=== PATIENT | male | born 1995 | race Caucasian/White ===

== ENCOUNTER 2016-08-17 22:13 | Emergency (ER) | payer SELFPAY ==
[~2016-08-17] VITALS: Ht 180.3 cm; Wt 78.6 kg
[2016-08-17 22:16] VITALS: TEMP 37.2
[2016-08-17] MEDS ORDERED: IBUP-1050 PO (22:48)
[2016-08-17] MEDS ORDERED: ASPI325T39 PO (22:48)
[2016-08-17] MEDS ORDERED: KETOROLAC TROMETHAMINE 30 MG/ML VIAL IV STA (23:17)
[2016-08-17] MEDS ORDERED: SODIUM CHLORIDE 0.9% 1000ML 1,000 ML IV STA (23:18)
--- NOTE | 2016-08-17 23:20 | EMERGENCY ROOM VISIT NOTE ---
History Report prepared by Dino: Connie Franco Under the Supervision of: Dr. Lindsey Pyle D.O. First contact with patient: 23:04 Chief Complaint: HEADACHE Stated Complaint: FEVER, SEVERE HEADACHE, PRESSURE BEHIND RT EYE History of Present Illness The patient is a 20 year old male who presents to the Emergency Room with complaints of constant fever beginning last night. He states that his fever has been constant throughout the day today. He has not taken his temperature. He has also been experiencing a headache on the right side of his head and right sided facial pain. He reports an "uncomfortable pressure" behind his right eye. The patient notes a sore throat and states that he has not been eating because this exacerbates his pain. He has some right sided abdominal pain. He rates his current pain as an 8/10 in severity. The patient denies nausea, vomiting, and leg cramping or swelling. He has never had mononucleosis. He did not have a flu shot this year. The patient is a student at [employer], and denies any sick contacts. He has been taking ibuprofen for his symptoms. He states that he has been drinking fluids throughout the day. Source of History: patient Onset: last night Position: head Symptom Intensity: 8/10 Quality: pressure Timing: constant Modifying Factors (Worsening): eating Associated Symptoms: + abdominal pain, + headache, + sorethroat, No nausea, No vomiting Note: Pt notes right sided facial pain and pain behind his right eye. Review of Systems See HPI for pertinent positives & negatives. A total of 10 systems reviewed and were otherwise negative. Past Medical & Surgical Medical Problems: (1) Alcohol intoxication Family History No pertinent history stated. Social History Smoking Status: Current Every Day Smoker Alcohol Use: occasionally Drug Use: marijuana Marital Status: single Occupation Status: [employer] student Current/Historical Medications Scheduled Amoxicillin & Pot Clavulanate (Augmentin 875-125 mg), 875 MG PO BID Aspirin (Aspirin Ec), 650 MG PO PRN UD Ibuprofen (Advil), 400 MG PO PRN UD Allergies Coded Allergies: No Known Allergies (Unverified , 01/19/16) Physical Exam Vital Signs Date Time Temp Pulse Resp B/P Pulse Ox O2 Delivery O2 Flow Rate FiO2 08/18/16 03:04 99 20 105/56 98 08/18/16 01:51 83 17 101/59 99 08/18/16 00:52 64 18 125/48 99 Room Air 08/17/16 23:37 96 Room Air 08/17/16 22:16 37.2 91 18 115/72 97 Room Air Physical Exam HEENT: Head - normocephalic and atraumatic Pupils are equal, round, and reactive to light. Extraocular eye muscles are intact, and sclera are anicteric. Ears - TMs clear bilaterally. Nose - moist nasal mucosa without discharge. Mouth - moist buccal mucosa. Oropharynx is nonerythematous and there is tonsillar exudate, no erythema or edema noted. Neck: Supple; no JVD, nuchal rigidity, cervical lymphadenopathy. Heart: Regular rate and rhythm. There is a normal S1 and S2 with no murmurs, clicks, or gallops appreciated. Lungs: Clear to auscultation bilaterally with no wheezes, rales, or rhonchi. Abdomen: Soft, nondistended, with good bowel sounds. There are no palpable pulsatile masses or hepatosplenomegaly. There is no guarding, rigidity, or rebound noted. Bilateral CVA tenderness Extremities: No evidence of cyanosis, clubbing, or edema. There are easily palpable peripheral pulses. Skin: warm and dry with good turgor and no rashes. Medical Decision & Procedures ER Provider Diagnostic Interpretation: Chest x-ray as interpreted by myself reveals no pulmonary infiltrates or consolidations. Radiology results as stated below per my review and the radiologist's interpretation: CT HEAD: No intracranial hemorrhage or mass effect Ventricles are within limits and midline CT SINUSES: Tiny fluid level right maxillary sinus Other paranasal sinuses and mastoids are clear Orbits appear within limits on noncontrast imaging TMJs appear normally located Radiologist: Cheng Huerta MD Laboratory Results 08/17/16 23:35 Red Blood Count 4.56, Mean Corpuscular Volume 89.0, Mean Corpuscular Hemoglobin 31.8, Mean Corpuscular Hemoglobin Concent 35.7, Mean Platelet Volume 9.5, Neutrophils (%) (Auto) 78.7, Lymphocytes (%) (Auto) 9.0, Monocytes (%) (Auto) 11.7, Eosinophils (%) (Auto) 0.3, Basophils (%) (Auto) 0.1, Neutrophils # (Auto ) 11.34, Lymphocytes # (Auto) 1.30, Monocytes # (Auto) 1.69, Eosinophils # (Auto ) 0.04, Basophils # (Auto) 0.02 08/17/16 23:35 Test 08/17/16 23:35 08/17/16 23:46 White Blood Count 14.42 K/uL (4.8-10.8) Red Blood Count 4.56 M/uL (4.7-6.1) Hemoglobin 14.5 g/dL (14.0-18.0) Hematocrit 40.6 % (42-52) Mean Corpuscular Volume 89.0 fL (80-100) Mean Corpuscular Hemoglobin 31.8 pg (25-34) Mean Corpuscular Hemoglobin Concent 35.7 g/dl (32-36) Platelet Count 215 K/uL (130-400) Mean Platelet Volume 9.5 fL (7.4-10.4) Neutrophils (%) (Auto) 78.7 % Lymphocytes (%) (Auto) 9.0 % Monocytes (%) (Auto) 11.7 % Eosinophils (%) (Auto) 0.3 % Basophils (%) (Auto) 0.1 % Neutrophils # (Auto) 11.34 K/uL (1.4-6.5) Lymphocytes # (Auto) 1.30 K/uL (1.2-3.4) Monocytes # (Auto) 1.69 K/uL (0.11-0.59) Eosinophils # (Auto) 0.04 K/uL (0-0.5) Basophils # (Auto) 0.02 K/uL (0-0.2) RDW Standard Deviation 43.1 fL (36.4-46.3) RDW Coefficient of Variation 13.3 % (11.5-14.5) Immature Granulocyte % (Auto) 0.2 % Immature Granulocyte # (Auto) 0.03 K/uL (0.00-0.02) Anion Gap 6.0 mmol/L (3-11) Est Creatinine Clear Calc Drug Dose 114.0 ml/min Estimated GFR () 111.4 Estimated GFR (Non- 96.1 BUN/Creatinine Ratio 17.2 (10-20) Calcium Level 8.4 mg/dl (8.5-10.1) Total Bilirubin 0.3 mg/dl (0.2-1) Aspartate Amino Transf (AST/SGOT) 9 U/L (15-37) Alanine Aminotransferase (ALT/SGPT) 20 U/L (12-78) Alkaline Phosphatase 59 U/L (45-117) Total Protein 7.3 gm/dl (6.4-8.2) Albumin 3.6 gm/dl (3.4-5.0) Globulin 3.7 gm/dl (2.5-4.0) Albumin/Globulin Ratio 1.0 (0.9-2) Monoscreen NEG (NEG) Bedside Lactic Acid Venous 0.79 mmol/L (0.90-1.70) Laboratory results per my review. Medications Administered Medications (Trade) Dose Ordered Sig/Emilia Route Start Time Stop Time Status Last Admin Dose Admin Ketorolac Tromethamine 30 mg 30 mg NOW STAT IV 08/17/16 23:17 08/17/16 23:20 DC 08/17/16 23:45 30 MG Sodium Chloride (Nss 1000ml) 1,000 ml @ 999 mls/hr Q1H1M STAT IV 08/17/16 23:18 08/18/16 00:18 DC 08/17/16 23:18 999 MLS/HR Amoxicillin/ Clavulanate Potassium (Augmentin Tab) 875 mg ONE ONCE PO 08/18/16 02:30 08/18/16 02:31 DC 08/18/16 02:44 875 MG Procedure Medications Administered: Toradol 30 mg IV NSS 1000 ml @ 999 mls/hr IV Augmentin tab 875 mg PO ED Course 2304: Past medical records reviewed. The patient was evaluated in room B6. A complete history and physical exam was performed. An IV lock was initiated and labs are drawn as above. A septic protocol was performed. His throat was swabbed for strep. It was negative. 2317: Toradol 30 mg IV 2318: NSS 1000 ml @ 999 mls/hr IV . The patient had chest x-ray as described above. The patient for CT scan of his brain and sinuses as described above. 0043: I reassessed the patient at this time. He is feeling better and his headache has completely resolved. He was able to drink liquids without any difficulty. 0156: I reassessed the patient at this time. He is feeling better and resting comfortably. I discussed the results and treatment plan with the patient. I answered all pertaining questions that he had. He expressed understanding and verbalized agreement. The patient will be discharged home. 0230: Augmentin tab 875 mg PO Medical Decision The patient is a 20 year old male who presents to the ED with a fever. Differential diagnosis includes sinusitis, sinus abscess, meningitis, mono, strep, tonsillitis. Laboratory Interpretations: lactic acid 0.79 white count 14.4 stable H&H normal lactic acid BUN 19 Creatinine 1.1 Normal LFTs Kenedy spot was negative As is a 20-year-old male patient presents to emergency room with fever, sore throat, and headache. Patient's symptoms are relieved with IV crystalloid therapy and Toradol. Kenedy testing was negative. Strep testing was negative. The patient had evidence of exudative tonsillitis on physical exam. CT scan of his sinuses also revealed maxillary sinus fluid level. The patient will be started on Augmentin to cover the sinuses and the tonsillitis. I've asked the patient to rest and take plenty of clear liquids. He is to follow-up with [facility] for any additional problems. Impression Primary Impression: Maxillary sinusitis, acute Additional Impression: Tonsillitis Scribe Attestation The scribe's documentation has been prepared under my direction and personally reviewed by me in its entirety. I confirm that the note above accurately reflects all work, treatment, procedures, and medical decision making performed by me. Departure Information Dispostion Home / Self-Care Prescriptions Amoxicillin & Pot Clavulanate (Augmentin 875-125 mg) 1 Tab Tab 875 MG PO BID, #14 TAB Prov: Lindsey Pyle D.O. 08/18/16 Referrals No Doctor, Assigned (PCP) Forms HOME CARE DOCUMENTATION FORM, IMPORTANT VISIT INFORMATION Patient Instructions ED Sinusitis Abx Tx, ED Tonsillitis, My [facility] Additional Instructions Rest. Take plenty of clear liquids Augmentin - every 12 hours for a week Motrin - 600mg every 6 hours with food for pain Problem Qualifiers Primary Impression: Maxillary sinusitis, acute Recurrence: non-recurrent Qualified Codes: J01.00 - Acute maxillary sinusitis, unspecified
[2016-08-17 23:37] VITALS: O2SAT 96; Ht 180.3 cm; Wt 78.6 kg
[2016-08-17 23:48] LABS: BASO % 0.1 %; BASO ABS # 0.02 K/uL (0-0.2); COMPLETE YES; EOS % 0.3 %; HEMATOCRIT 40.6 % (42-52); IG% 0.2 %; MEAN CORPUSCULAR HEMOGLOBIN 31.8 pg (25-34); MEAN CORPUSCULAR HGB CONC 35.7 g/dl (32-36); MEAN PLATELET VOLUME 9.5 fL (7.4-10.4); MONO % 11.7 %; NEUT % 78.7 %; PLATELET COUNT 215 K/uL (130-400); RED BLOOD COUNT 4.56 M/uL (4.7-6.1); WHITE BLOOD COUNT 14.42 K/uL (4.8-10.8)
[2016-08-18 00:07] LABS: BUN/CREATININE RATIO 17.2 (10-20); CALCIUM 8.4 mg/dl (8.5-10.1); CREATININE 1.1 mg/dl (0.60-1.40); POTASSIUM 3.7 mmol/L (3.5-5.1)
[2016-08-18] MEDS ORDERED: AMOXICILLIN/CLAVULANATE TAB 875 MG TAB PO ONE (02:30)
[2016-08-18] MEDS ORDERED: AMOX875T PO (02:53)
[2016-08-18 03:04] VITALS: BP 105/56; PULSE 99; O2SAT 98
--- NOTE | 2016-08-18 07:11 | DIAGNOSTIC IMAGING REPORT ---
CT SCAN OF THE PARANASAL SINUSES CLINICAL HISTORY: Headache. Right eye pain. COMPARISON STUDY: CT of the brain dated 08/17/2016. TECHNIQUE: High-resolution CT scan of the paranasal sinuses is performed. Images are reviewed in the axial, sagittal, and coronal planes. IV contrast was not administered for this examination. FINDINGS: Maxillary antra: There is trace dependent mucosal thickening. Minimal fluid is noted on the right. Anterior ethmoid sinuses: Clear. Posterior ethmoid sinuses: Clear. Sphenoid sinuses: Clear. Frontal sinuses: Trace mucosal thickening seen on the left. Clear on the right. Ostiomeatal complexes: Patent bilaterally. Frontoethmoidal and sphenoethmoidal recesses: Patent bilaterally. Carotid arteries: The carotid arteries are covered noting a septal attachment on the right. Ethmoid roofs: The ethmoid roofs are symmetric. Nasal turbinates: Normal in appearance. Nasal septum: There is leftward deviation of the bony nasal septum with a small spur. Optic nerves: Covered. Orbits: The bony orbits are intact. Orbital contents are normal in appearance. Calvarium: The imaged calvarium is normal in appearance Mastoid air cells: Well pneumatized. Brain parenchyma: Partially visualized brain parenchyma is within normal limits. IMPRESSION: No significant paranasal sinus disease. See above. Electronically signed by: Jared Charles M.D. 08/18/2016 7:10 AM Dictated Date/Time: 08/18/2016 7:08 AM
--- NOTE | 2016-08-18 07:21 | DIAGNOSTIC IMAGING REPORT ---
HEAD CT NONCONTRAST CT DOSE: HISTORY: Pain. Mass. Status change severe headache TECHNIQUE: Multiaxial CT images of the head were performed without the use of intravenous contrast. Comparison: None. Findings: The paranasal sinuses and mastoid air cells are clear. The calvarium and skull base are intact. The ventricles and sulci are within normal limits. There is no mass, hematoma, midline shift, or acute infarct. Impression: No acute intracranial abnormality. Electronically signed by: Rafael Harris M.D. 08/18/2016 7:19 AM Dictated Date/Time: 08/18/2016 7:19 AM
--- NOTE | 2016-08-18 07:36 | DIAGNOSTIC IMAGING REPORT ---
SINGLE VIEW CHEST CLINICAL HISTORY: Sepsis. FINDINGS: 2 AP, portable, upright chest radiographs are obtained. No prior studies are available for comparison at the time of dictation. The examination is degraded by portable technique and patient rotation. The cardiomediastinal silhouette is unremarkable. The lungs and pleural spaces are clear. No pneumothorax is seen. The bony thorax is grossly intact. IMPRESSION: No active disease in the chest. Electronically signed by: Jared Charles M.D. 08/18/2016 7:35 AM Dictated Date/Time: 08/18/2016 7:34 AM
== END 2016-08-18 03:08 | disposition home or self-care (01) ==
LOC: C.EDB 22:15
DX: J01.00 Acute maxillary sinusitis, unspecified (principal); J03.90 Acute tonsillitis, unspecified; F17.200 Nicotine dependence, unspecified, uncomplicated; F12.90 Cannabis use, unspecified, uncomplicated

== ENCOUNTER 2016-09-10 08:09 | Emergency (ER) | payer SELFPAY ==
[~2016-09-10] VITALS: Ht 180.3 cm; Wt 75.9 kg
[~2016-09-10 08:09] MED LIST: ASPI325T39 PO; IBUP-1050 PO
[2016-09-10 08:10] VITALS: TEMP 36.8; Ht 180.3 cm; Wt 75.9 kg
[2016-09-10] MEDS ORDERED: CEPHALEXIN MONOHYDRATE 250 MG CAP PO ONE (08:45)
[2016-09-10] MEDS ORDERED: XYLOCAINE 1%/SOD BICARB 20 ML VIAL INFIL ONE (08:45)
[2016-09-10 09:36] VITALS: BP 139/82; PULSE 96; O2SAT 100
[2016-09-10] MEDS ORDERED: CEPH500C2 PO (09:40)
--- NOTE | 2016-09-10 09:42 | EMERGENCY ROOM VISIT NOTE ---
ED Visit Note First contact with patient: 08:16 CHIEF COMPLAINT: Left armpit laceration 12 hours ago HISTORY OF PRESENT ILLNESS: Patient is a [id number] 20-year-old white male who presents to the emergency department for evaluation of a laceration to the left axilla that had sharp metal spikes on the top. Patient reports that around 8:00 last evening he tried to climb a fence. He states that his foot slipped and he fell, puncturing the left on a spike on the top of the fence. Initially he did not notice that he had sustained a laceration, later felt that his shirt was wet and realized that it was bloody. He went home a friend cleansed and bandaged it. He did not have a ride to the emergency department last evening so he had to wait until this morning. Bleeding was controlled with a bandage. He does have some discomfort in the area, and discomfort with movement of his arm. He denies numbness, tingling or weakness radiating into the left upper extremity. REVIEW OF SYSTEMS: Review of systems as per HPI. All other systems reviewed were negative. At least 6 systems reviewed. PMH: Electronic medical records are reviewed and summarized as above/below. See Problem List. His tetanus is up-to-date. SOCIAL HISTORY: Patient is a college student who lives locally in an apartment. He does not smoke, denies alcohol use. PHYSICAL EXAM: Vital Signs: Reviewed Nurse's notes. There is a 5 cm long laceration in the left axilla. The edges are gaping widely apart. There is no foreign material in the wound and it looks clean. There is no active bleeding. No deep structures such as tendons or nerves are seen in the base of the wound. The right upper extremity is neurovascularly intact. He has some discomfort in the axilla with shoulder range of motion, but otherwise it is full. Strength to resisted shoulder flexion/abduction, elbow flexion/extension, wrist flexion/extension, intrinsic hand strength, boat worker strength, and thumb opposition is 5/5 bilaterally. Radial and ulnar pulses are easily palpable. Sensation to light touch is intact over the left upper extremity. EMERGENCY DEPARTMENT COURSE: Using sterile technique, saline and Betadine cleansing, and 1% lidocaine anesthesia, the laceration was repaired with 4-0 nylon sutures. Patient tolerated the procedure well. Given the delayed primary closure, he will be placed on Keflex. He was educated on the worrisome signs or symptoms of infection for which she should return to the emergency department. I do not suspect nerve or vascular. Problem List Medical Problems: (1) Alcohol intoxication Status: Resolved Current/Historical Medications Scheduled Aspirin (Aspirin Ec), 650 MG PO PRN UD Cephalexin Monohydrate (Keflex), 500 MG PO TID Ibuprofen (Advil), 400 MG PO PRN UD Allergies Coded Allergies: No Known Allergies (Unverified , 09/10/16) Vital Signs Date Time Temp Pulse Resp B/P Pulse Ox O2 Delivery O2 Flow Rate FiO2 09/10/16 09:36 96 15 139/82 100 Room Air 09/10/16 08:10 36.8 105 18 134/64 94 Room Air Medications Administered Medications (Trade) Dose Ordered Sig/Emilia Route Start Time Stop Time Status Last Admin Dose Admin Lidocaine HCl (Buffered Lidocaine 1% Inj) 20 ml ONE ONCE INFIL 09/10/16 08:45 09/10/16 08:46 DC 09/10/16 08:43 20 ML Cephalexin Monohydrate (Keflex Cap) 500 mg NOW ONCE PO 09/10/16 08:45 09/10/16 08:46 DC 09/10/16 08:43 500 MG Departure Information Impression Primary Impression: Laceration of axilla, left Prescriptions Cephalexin Monohydrate (KEFLEX) 500 Mg Cap 500 MG PO TID, #21 CAP Prov: Mere Ritter PA 09/10/16 Referrals No Doctor, Assigned (PCP) Patient Instructions My [facility] Additional Instructions Keep wound clean and dry. Clean gently with mild soap and water. Use an antibiotic ointment for 3-4 days, then let wound dry. Suture removal in 12-14 days. Ibuprofen(Motrin, Advil) may be used for fever or pain. Use 600mg every six hours as needed. Take with food. Avoid using more than 2400mg in a 24 hour period. Do not use 2400mg per day for more than three consecutive days without physician direction. Prolonged inappropriate use can lead to stomach upset or ulcers. This medication can be taken if you need to drive, work, or perform activities which may be dangerous when taking narcotic pain medication. (AND/OR) Acetaminophen(Tylenol) may be used for fever or pain. Use 1000mg every six hours as needed. Avoid using more than 3000mg in a 24 hour period. This medication can be taken if you need to drive, work, or perform activities which may be dangerous when taking narcotic pain medication. Ice compresses for 20 minutes at a time four times daily for 2-3 days. Use the sling as instructed. Remove your arm from the sling 4-6 times a day and move all the joints around to keep them loose. Rest and elevate your injury. Continue current medications. Return to the ER immediately for any numbness, tingling, severe pain, extreme swelling in the extremity, or for any signs of infection (increasing redness, swelling, drainage).
== END 2016-09-10 09:48 | disposition home or self-care (01) ==
LOC: C.EDB 08:10 → C.EDA 09:48
DX: S41.112A Laceration without foreign body of left upper arm, initial encounter (principal); W45.8XXA Other foreign body or object entering through skin, initial encounter; Z79.82 Long term (current) use of aspirin

== ENCOUNTER 2016-09-13 14:13 | Emergency (ER) | payer SELFPAY ==
[~2016-09-13] VITALS: Ht 180.3 cm; Wt 75.2 kg
[~2016-09-13 14:13] MED LIST changes: +CEPH500C2 PO
[2016-09-13 14:33] VITALS: BP 148/84; PULSE 77; TEMP 36.8; O2SAT 99; Ht 180.3 cm; Wt 75.2 kg
--- NOTE | 2016-09-13 14:49 | EMERGENCY ROOM VISIT NOTE ---
ED Visit Note First contact with patient: 14:37 CHIEF COMPLAINT: Recheck left axillary wound History of present illness: Patient is a 20-year-old white male who returns to the emergency department requesting reevaluation of a wound to his left axilla with associated bruising. Patient was seen by myself 3 days ago after he had slipped and punctured his left armpit on the top of a fence the evening prior. He had a laceration to the left axilla which was repaired. It was a delayed primary closure and therefore he was placed on antibiotics. He has been taking the antibiotics as prescribed. He states that when he woke up this morning, he noted bruising that had extended into the left triceps region, which was a change from prior. He notes otherwise that his pain is subsiding and it hurts less to move his left shoulder. He denies fever, chills, nausea or vomiting, no drainage or discharge from the wound. REVIEW OF SYSTEMS: Review of systems as per HPI. All other systems reviewed were negative. At least 6 systems reviewed. PMH: Electronic medical records are reviewed and summarized as above/below. See Problem List. SOCIAL HISTORY: Patient lives at home. College student. PHYSICAL EXAM: Vital Signs: Reviewed Nurse's notes. MENTAL STATUS: Alert, oriented, and not in distress. SKIN: Examination of the left axilla showed the wound to be well healing with intact sutures. There is no crusting, drainage or discharge, no signs of erythema. No fluctuance noted. The patient has ecchymosis noted in the lateral aspect of the upper arm, near the triceps distribution. The area is nontender to palpation. Shoulder and elbow range of motion are full. The left upper extremity is neurovascularly intact. EMERGENCY DEPARTMENT COURSE: The patient was seen and examined as above. I'm familiar with him from his visit from 3 days ago. The suture line looks great and is well approximated and well healing without signs of infection. He did have a fairly significant hematoma to the left axillary region which now appears to have moved into a more dependent position into the left upper arm. There is no significant tenderness here. He does not have any signs of infection, I do not suspect nerve, vascular injury or compartment syndrome. The patient was reassured. He will continue wound care measures as discussed, and was advised that the hematoma would have to heal on its own. He expressed understanding of this and was agreeable. He was discharged home in good condition. Problem List Medical Problems: (1) Alcohol intoxication Status: Resolved Current/Historical Medications Scheduled Aspirin (Aspirin Ec), 650 MG PO PRN UD Cephalexin Monohydrate (Keflex), 500 MG PO TID Ibuprofen (Advil), 400 MG PO PRN UD Allergies Coded Allergies: No Known Allergies (Unverified , 09/13/16) Vital Signs Date Time Temp Pulse Resp B/P Pulse Ox O2 Delivery O2 Flow Rate FiO2 09/13/16 14:33 36.8 77 18 148/84 99 Room Air Departure Information Impression Primary Impression: Encounter for wound re-check Additional Impression: Traumatic hematoma of left upper arm Referrals No Doctor, Assigned (PCP) Patient Instructions My [facility] Additional Instructions Continue all wound care as previously discussed. Finish antibiotics as prescribed. May resume normal activity as your discomfort allows. Bruising will gradually resolve on its own. Problem Qualifiers
== END 2016-09-13 14:54 | disposition home or self-care (01) ==
LOC: C.EDB 14:14 → C.EDD 14:54
DX: S41.112A Laceration without foreign body of left upper arm, initial encounter (principal); S40.022A Contusion of left upper arm, initial encounter; W45.8XXA Other foreign body or object entering through skin, initial encounter; W19.XXXA Unspecified fall, initial encounter; Z79.82 Long term (current) use of aspirin

== ENCOUNTER 2016-09-22 19:50 | Emergency (ER) | payer SELFPAY ==
[~2016-09-22] VITALS: Ht 180.3 cm; Wt 78.5 kg
[2016-09-22 20:14] VITALS: BP 132/68; PULSE 76; TEMP 36.8; O2SAT 98; Ht 180.3 cm; Wt 78.5 kg
--- NOTE | 2016-09-22 20:24 | EMERGENCY ROOM VISIT NOTE ---
ED Visit Note First contact with patient: 20:17 CHIEF COMPLAINT: Suture removal HISTORY OF PRESENT ILLNESS: This 20-year-old male patient returns to the ED today for removal of sutures that were placed 11 days ago. There has been no swelling, redness, or drainage from the wound. The patient feels like the laceration is healing well. REVIEW OF SYSTEMS: A 6 system review of systems was completed with positives and pertinent negatives listed in the HPI. PMH: Unchanged from previous visit. ALLERGIES: No known drug allergies PHYSICAL EXAM: Vital Signs: Reviewed Nurse's notes, vital signs stable. GENERAL : . a 20-year-old male, in no acute distress. SKIN: There is a sutured wound on the left axilla with no signs of infection. There is no erythema, swelling, or tenderness. EMERGENCY DEPARTMENT COURSE: the patient appears to have some thickening of the skin. He states that he tried a new deodorant. This could be a contact dermatitis or possible healing process or from the rubbing of the sutures. He was advised to watch this area closely. 5 Sutures were removed without any difficulty and there was no separation of the wound edges. The patient was discharged home in good condition. DIAGNOSIS: Healing laceration and suture removal DISCHARGE INSTRUCTIONS AND TREATMENT: Wash any remaining crusts off of the wound today and resume your normal activities. Problem List Medical Problems: (1) Alcohol intoxication Status: Resolved Current/Historical Medications Scheduled Aspirin (Aspirin Ec), 650 MG PO PRN UD Allergies Coded Allergies: No Known Allergies (Unverified , 09/22/16) Vital Signs Date Time Temp Pulse Resp B/P Pulse Ox O2 Delivery O2 Flow Rate FiO2 09/22/16 20:14 36.8 76 18 132/68 98 Room Air Departure Information Impression Primary Impression: Encounter for removal of sutures Dispostion Home / Self-Care Condition GOOD Referrals No Doctor, Assigned (PCP) Patient Instructions [facility] [employer] Additional Instructions Wash any remaining crusts off of the wound today and resume your normal activities.
== END 2016-09-22 21:00 | disposition home or self-care (01) ==
LOC: C.EDB 19:50 → C.EDA 21:00
DX: S41.112D Laceration without foreign body of left upper arm, subsequent encounter (principal); X58.XXXD Exposure to other specified factors, subsequent encounter